=== PATIENT | female | born 1985 ===

== ENCOUNTER 2021-11-13 09:17 | Outpatient (CLI) | payer OTHER ==
[~2021-11-13 09:17] MED LIST: FLOVENT 110MCG7.9 GM IH; PROVENTIL3 ML/2.5 M IH; ZITHROMAX500 MG PO; ZYNCOF 20-400120 ML PO
== END 2021-11-13 09:23 | disposition home or self-care (01) ==
LOC: SONOGRAMA 09:17
PROVIDERS: ATTEND Pathology Anatomic Pathology & Clinical Pathology
DX: R59.0 Localized enlarged lymph nodes (principal)